=== PATIENT | male | born 1945 | race Caucasian/White ===

== ENCOUNTER 2017-04-20 14:52 | Emergency (ER) | payer MEDICARE ==
[~2017-04-20] VITALS: Wt 87.2 kg
[~2017-04-20 14:52] MED LIST: ATOR10TA65 PO; FLUO20CA22 PO; HYDR-906 PO; LISI20TA11 PO; METF500T3 PO; NITR0.4T39 SL; PANT40TA4 PO
[2017-04-20] MEDS ORDERED: HYDR-905 PO (17:51)
[2017-04-20] MEDS ORDERED: METH500T PO (17:51)
--- NOTE | 2017-04-20 17:56 | ERD ---
ER Documentation Chief Complaint Chief Complaint REDDY LEG PAIN 1 1/2 WEEKS HPI This is a 71-year-old male who is complaining of 2 weeks of pain in both of his legs. He says the pain began to the top of the buttocks and along the L5-S1 junction radiates down the sides of his legs to his knees. Says it happens when he is walking does not occur with sitting or standing. No loss of bowel or bladder no numbness no saddle anesthesia no weakness. No fall or trauma. Pain is described as sharp and it is worse at night ROS All systems reviewed and are negative except as per history of present illness. Medications Home Meds Active Scripts Methocarbamol* (Robaxin*) 500 Mg Tab, 500 MG PO Q8, #14 TAB Prov:CASANDRA BAH DO 04/20/17 Hydrocodone/Acetaminophen (Paxton 7.5-325 Tablet) 1 Each Tablet, 1 EACH PO q4-6 hours for PAIN, #20 TAB Prov:ANETA BAHSTROSS El DO 04/20/17 Hydrocodone/Acetaminophen (Paxton 5-325 Tablet) 1 Each Tablet, 1 EACH PO Q6 Y for PAIN for 14 Days, #30 TAB Prov:DANIELLE GAITAN MD 01/10/16 Pantoprazole* (Pantoprazole*) 40 Mg Tablet.dr, 40 MG PO DAILY@06 for 30 Days Prov:DANIELLE GAITAN MD 11/23/15 Reported Medications Nitroglycerin* (Nitrostat*) 0.4 Mg Tab.subl, 0.4 MG SL Q5MIN Y for CHEST PAIN, BOTTLE 02/22/14 Atorvastatin Calcium (Atorvastatin Calcium) 10 Mg Tab, 10 MG PO HS, TAB 02/22/14 Fluoxetine Hcl* (Fluoxetine Hcl*) 20 Mg Capsule, 20 MG PO DAILY, CAP 02/22/14 Metformin Hcl* (Metformin Hcl* ER) 500 Mg Tab.sr.24h, 500 MG PO DAILY, TAB 02/22/14 Lisinopril* (Lisinopril*) 20 Mg Tablet, 20 MG PO DAILY, TAB 02/22/14 Allergies Allergies: Coded Allergies: No Known Allergy (Unverified , 01/09/16) PMhx/Soc History of Surgery: Yes (REDDY INGUINAL HERNIA, UMBILICSL HERNIA, PROSTATE SX, CAROTID ENDARTERECTOMY) Anesthesia Reaction: No Hx Neurological Disorder: No Hx Respiratory Disorders: No Hx Cardiac Disorders: Yes (HTN,HLP) Hx Psychiatric Problems: Yes (DEPRESSION) Hx Miscellaneous Medical Probl: No Hx Alcohol Use: No Hx Substance Use: No Hx Tobacco Use: No FmHx Family History: No coronary disease Physical Exam Vitals Vital Signs Date Time Temp Pulse Resp B/P Pulse Ox O2 Delivery O2 Flow Rate FiO2 04/20/17 14:59 98.1 87 18 127/82 99 Physical Exam Const: Well-developed, well-nourished Head: Atraumatic, normocephalic Eyes: Normal Conjunctiva, PERRLA, EOMI, normal sclera, no nystagmus ENT: Normal External Ears, Nose and Mouth, moist mucus membranes. Neck: Full range of motion. No meningismus, no lymphadenopathy. Resp: Clear to auscultation bilaterally, no wheezing, rhonchi, rales Cardio: Regular rate and rhythm, no murmurs, S1 S2 present Abd: Soft, non tender x 4, non distended. Normal bowel sounds, no guarding or rebound, no pulsitile abdominal masses or bruits Skin: No petechiae or rashes, no ecchymosis , no maculopapular rash Back: Mild bilateral paraspinal tenderness, negative straight leg test, no saddle anesthesia Ext: No cyanosis, or edema, FROM x 4, normal inspection, neurovascularly intact x 4 Neur: Awake and alert, STR 5/5 x 4, sensation intact x 4, no focal findings, cerebellum intact Psych: Normal Mood and Affect Results 24 hrs Current Medications Medications (Trade) Dose Ordered Sig/Henry Route PRN Reason Start Time Stop Time Status Last Admin Dose Admin Acetaminophen/ Hydrocodone Bitart (Paxton (5/325)) 1 tab ONCE ONCE PO 04/20/17 18:00 04/20/17 18:01 Procedures/MDM Patient needs a lumbar MRI which she can do as an outpatient. At this time I did show him some stretches will provide him with some analgesia until he can get some physical therapy scheduled an MRI Departure Diagnosis: Primary Impression: Lumbar radiculopathy Condition: Stable Patient Instructions: Neuropathy Peripheral CASANDRA BAH DO Apr 20, 2017 17:56
[2017-04-20] MEDS ORDERED: HYDROCODONE/APAP (5/325) TAB PO ONE (18:00)
[2017-04-20 19:14] VITALS: BP 176/79; PULSE 85; RESP 18; TEMP 98.2
== END 2017-04-20 19:17 | disposition home or self-care (01) ==
LOC: FTE 14:52
DX: M54.16 Radiculopathy, lumbar region (principal); I10 Essential (primary) hypertension; Z79.84 Long term (current) use of oral hypoglycemic drugs
CPT/HCPCS: 99284